=== PATIENT | female | born 1990 | race Caucasian/White ===

== ENCOUNTER 2017-03-19 09:45 | Observation (INO) | payer OTHER ==
[2017-03-19 10:15] VITALS: O2SAT 98
[2017-03-19 11:18] VITALS: BP 119/76; PULSE 83
== END 2017-03-19 11:20 | disposition home or self-care (01) ==
LOC: OB 09:45
PROVIDERS: ADMIT Family Medicine; ATTEND Family Medicine
DX: Z34.03 Encounter for supervision of normal first pregnancy, third trimester (principal)
CPT/HCPCS: 59025; G0378

== ENCOUNTER 2017-04-22 07:58 | Inpatient (IN) | payer OTHER, SELFPAY ==
[2017-04-22] MEDS ORDERED: Phenergan 25 MG INJ IV PRN (17:39)
[2017-04-22] MEDS ORDERED: Zofran 4 MG/2 ML VIAL IV PRN (17:39)
[2017-04-22] MEDS ORDERED: PITOCIN 30 UNITS/ LR 500 ML 500 ML IV SCH (18:00)
[2017-04-22 18:47] LABS: Mean Cell Volume 90.2 fl (78-100); Mean Corpuscular Hemoglobin 31.1 pg (26-32); Mean Platelet Volume 10.5 fl (6-9.5); Platelet Count 216 K/mm3 (150-450); Red Blood Count 4.28 M/mm3 (4.1-5.4); Red Cell Distribution Width 13.3 % (11.5-14.0); White Blood Count 10.3 K/mm3 (4.0-10.5)
[2017-04-22 19:48] LABS: BAND 5 % (0.0-2.0); Platelet Estimate NORMAL (NORMAL); Total Cells Counted 100
[2017-04-23] MEDS ORDERED: XYLOCAINE 1% HCL 20 ML MDV IJ PRN (06:00)
[2017-04-23] MEDS: Lactated Ringers 1,000 ML IV SCH ×3 (08:22→21:00)
[2017-04-23] MEDS: SYNTHROID 25 MCG PO SCH (10:13)
[2017-04-23] MEDS ORDERED: Lactated Ringers 1,000 ML IV ONE (11:28)
[2017-04-23] MEDS ORDERED: Ephedrine Sulfate 50 MG/ML IV PRN (11:28)
[2017-04-23] MEDS ORDERED: OB EPIDURAL NAROPIN/SUFENTANIL IN NACL EPIDURAL PRN (11:28)
[2017-04-23] MEDS: Nubain 10 MG/ML IV PRN ×2 (13:31→16:40)
[2017-04-23] MEDS ORDERED: OMNIPEN 2 GM / NACL 100ML 100 ML IV ONE (21:53)
[2017-04-23] MEDS ORDERED: MOTRIN 400 MG ONE (23:08)
[2017-04-23] MEDS ORDERED: Dermoplast Spray ONE (23:08)
[2017-04-23] MEDS ORDERED: LANSINOH 40 GM ONE (23:08)
[2017-04-23] MEDS ORDERED: TUCKS TP ONE (23:08)
[2017-04-23] MEDS ORDERED: CORTISONE 1% CREAM TP PRN (23:11)
[2017-04-23] MEDS ORDERED: Anucort-HC SUPPOSITORY PR PRN (23:11)
[2017-04-23] MEDS ORDERED: Mylicon 80MG PO PRN (23:11)
[2017-04-23] MEDS ORDERED: LANSINOH 40 GM TOP PRN (23:11)
[2017-04-23] MEDS ORDERED: NORCO 5/325 MG PO PRN (23:11)
[2017-04-23] MEDS ORDERED: Dulcolax 10 MG SUPP PR PRN (23:11)
[2017-04-23] MEDS: MOTRIN 400 MG PO PRN (23:14)
[2017-04-23] MEDS: Dermoplast Spray TP PRN (23:19)
[2017-04-23] MEDS ORDERED: TUCKS TP PRN (23:20)
[2017-04-24] MEDS ORDERED: OMNIPEN 1GM / NaCl 100ML 100 ML ONE (01:00)
[2017-04-24] MEDS ORDERED: OMNIPEN 1GM / NaCl 100ML 100 ML IV SCH (01:53)
[2017-04-24] MEDS: MOTRIN 400 MG PO PRN ×2 (05:30→18:43)
[2017-04-24] MEDS: OMNIPEN 1GM / NaCl 100ML 100 ML IV SCH ×4 (05:44→19:05)
[2017-04-24 06:30] LABS: BASOPHIL % 0.1 % (0.0-0.4); Eosinophil % 0.2 % (0.00-5.0); Granulocytes % 81.2 % (36.0-66.0); Lymphocytes % 11.5 % (24.0-44.0); Mean Cell Volume 92.4 fl (78-100); Mean Platelet Volume 10.7 fl (6-9.5); Platelet Count 196 K/mm3 (150-450); Red Blood Count 3.44 M/mm3 (4.1-5.4); Red Cell Distribution Width 13.4 % (11.5-14.0); White Blood Count 13.5 K/mm3 (4.0-10.5)
[2017-04-24 06:31] LABS: Mean Corpuscular Hemoglobin 31.6 pg (26-32)
[2017-04-24] MEDS: FERREX 150 PO SCH (10:09)
[2017-04-24] MEDS: SYNTHROID 25 MCG PO SCH (10:10)
[2017-04-24] MEDS: Colace 100 MG PO SCH ×2 (10:10→21:03)
[2017-04-24] MEDS: TYLENOL EXTRA STRENGTH 500 MG PO PRN ×2 (10:12→21:02)
[2017-04-25] MEDS: MOTRIN 400 MG PO PRN ×3 (00:17→16:34)
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
[2017-04-25] MEDS: Colace 100 MG PO SCH ×2 (10:21→22:14)
[2017-04-25] MEDS: FERREX 150 PO SCH (10:21)
[2017-04-25] MEDS: SYNTHROID 25 MCG PO SCH (10:21)
[2017-04-25] MEDS: Dermoplast Spray TP PRN (22:14)
[2017-04-25 23:25] VITALS: BP 133/84; PULSE 90
== END 2017-04-25 23:15 | disposition home or self-care (01) | DRG 775 ==
LOC: OB 07:58 → UNDOADMOB 17:23 → OB 17:23 → OBSVTOIN 04-23 07:58
PROVIDERS: ADMIT Family Medicine; ATTEND Family Medicine
PROC: 10E0XZZ Delivery of Products of Conception, External Approach (ICD-10-PCS; principal; 2017-04-23)
PROC: 0KQM0ZZ Repair Perineum Muscle, Open Approach (ICD-10-PCS; 2017-04-23)
DX: O70.1 Second degree perineal laceration during delivery (principal); Z37.0 Single live birth; Z3A.40 40 weeks gestation of pregnancy
CPT/HCPCS: 01967; 36415; 80307; 85025; G0378; J0290; J2300; J2590; J2795; A9270-GY

== ENCOUNTER 2020-01-01 13:50 | Observation (INO) | payer OTHER ==
[2020-01-01 14:28] VITALS: BP 123/79; PULSE 100
--- NOTE | 2020-01-01 15:04 | XRAY ---
Indication: Evaluate SALEEM. well-being. Limited OB ultrasound performed to evaluate SALEEM. Single viable intrauterine with heart rate 126 BPM. 4 quadrant SALEEM is 19.9 cm, previously 16.4 cm on December 21, 2019. Impression: New borderline polyhydramnios.
== END 2020-01-01 15:15 | disposition home or self-care (01) ==
LOC: OB 13:50
PROVIDERS: ADMIT Family Medicine; ATTEND Family Medicine
DX: Z34.83 Encounter for supervision of other normal pregnancy, third trimester (principal)
CPT/HCPCS: 59025; 76815; G0378

== ENCOUNTER 2020-01-05 10:00 | Observation (INO) | payer OTHER ==
[2020-01-05 10:17] VITALS: BP 130/77; PULSE 114
== END 2020-01-05 11:13 | disposition home or self-care (01) ==
LOC: OB 10:00
PROVIDERS: ADMIT Family Medicine; ATTEND Family Medicine
DX: Z34.83 Encounter for supervision of other normal pregnancy, third trimester (principal)
CPT/HCPCS: 59025; G0378

== ENCOUNTER 2020-01-09 07:04 | Observation (INO) | payer OTHER ==
[2020-01-09] MEDS ORDERED: BRETHINE 1 MG/ML SQ PRN (08:00)
[2020-01-09] MEDS ORDERED: OMNIPEN 2 GM*** 2 G in Sodium Chloride 100ML MINI-BAG PLUS 100 ML IV ONE (08:00)
[2020-01-09] MEDS ORDERED: XYLOCAINE 1% HCL 20 ML MDV IJ PRN (08:00)
[2020-01-09] MEDS ORDERED: PITOCIN 30 UNITS/ LR 500 ML 500 ML IV SCH (08:00)
[2020-01-09 08:09] LABS: Hematocrit 36.8 % (35-47); Hemoglobin 12.8 gm/dl (12.0-16.0); Mean Cell Volume 92.9 fl (78-100); Mean Corpuscular Hemoglobin 32.3 pg (26-32); Mean Corpuscular Hgb Concent. 34.8 g/dl (32-36); Mean Platelet Volume 10.2 fl (7.5-11.0); Platelet Count 184 K/mm3 (150-450); Red Blood Count 3.96 M/mm3 (4.1-5.4); Red Cell Distribution Width 13.5 % (11.5-14.0); White Blood Count 8.7 K/mm3 (4.0-10.5)
[2020-01-09 08:26] LABS: Amphetamine,Urine NEGATIVE (NEGATIVE); Barbiturate,Urine NEGATIVE (NEGATIVE); Benzodiazepine,Urine NEGATIVE (NEGATIVE); Cocaine,Urine NEGATIVE (NEGATIVE); Methadone,Urine NEGATIVE (NEGATIVE); Opiate,Urine NEGATIVE (NEGATIVE); PCP,Urine NEGATIVE (NEGATIVE); THC,Urine NEGATIVE (NEGATIVE)
[2020-01-09] MEDS: Lactated Ringers 1,000 ML IV SCH ×2 (08:32→18:45)
[2020-01-09 08:42] VITALS: O2SAT 97
[2020-01-09 11:09] LABS: BAND 6 % (0.0-2.0); Lymphocytes 12 % (24-44); Monocyte 3 % (0.0-12.0); Neutrophils 79 % (36.0-66.0); Platelet Estimate NORMAL (NORMAL); Polychromasia 1+; Total Cells Counted 100
[2020-01-09] MEDS ORDERED: OMNIPEN 1 GM ONE (13:36)
[2020-01-09] MEDS: OMNIPEN 1 GM*** 1 GM in Sodium Chloride 100ML MINI-BAG PLUS 100 ML IV SCH ×3 (13:41→20:39)
[2020-01-09] MEDS: CYTOTEC PO PRN ×3 (18:45→22:53)
[2020-01-10] MEDS: CYTOTEC PO PRN (00:52)
[2020-01-10] MEDS: OMNIPEN 1 GM*** 1 GM in Sodium Chloride 100ML MINI-BAG PLUS 100 ML IV SCH (00:53)
[2020-01-10 01:51] VITALS: BP 117/82; PULSE 77
== END 2020-01-10 03:08 | disposition home or self-care (01) ==
LOC: OB 07:04
PROVIDERS: ADMIT Family Medicine; ATTEND Family Medicine
DX: O13.3 Gestational [pregnancy-induced] hypertension without significant proteinuria, third trimester (principal); Z3A.39 39 weeks gestation of pregnancy; O99.820 Streptococcus B carrier state complicating pregnancy
CPT/HCPCS: 36415; 80307; 85025; 87340; G0378; J0290; J2590

== ENCOUNTER 2020-01-14 14:40 | Inpatient (IN) | payer OTHER ==
[2020-01-14] MEDS ORDERED: BRETHINE 1 MG/ML SQ PRN (16:25)
[2020-01-14] MEDS ORDERED: PITOCIN 30 UNITS/ LR 500 ML 500 ML IV SCH (17:00)
[2020-01-14] MEDS ORDERED: Cervidil 10 MG VAG SCH (18:00)
[2020-01-14] MEDS ORDERED: Zofran 4 MG/2 ML VIAL IV PRN (18:00)
[2020-01-14 20:23] LABS: Hematocrit 36.6 % (35-47); Hemoglobin 12.7 gm/dl (12.0-16.0); Mean Cell Volume 93.6 fl (78-100); Mean Corpuscular Hemoglobin 32.5 pg (26-32); Mean Corpuscular Hgb Concent. 34.7 g/dl (32-36); Mean Platelet Volume 10.2 fl (7.5-11.0); Platelet Count 171 K/mm3 (150-450); Red Blood Count 3.91 M/mm3 (4.1-5.4); Red Cell Distribution Width 13.3 % (11.5-14.0); White Blood Count 9.5 K/mm3 (4.0-10.5)
[2020-01-14 23:47] LABS: BAND 1 % (0.0-2.0); Eosinophil 2 % (0.00-3.0); Lymphocytes 21 % (24-44); Monocyte 4 % (0.0-12.0); Neutrophils 72 % (36.0-66.0); Total Cells Counted 100
[2020-01-14 23:48] LABS: ANISOCYTOSIS 1+; Platelet Estimate NORMAL (NORMAL)
[2020-01-15] MEDS ORDERED: Lactated Ringers 1,000 ML IV ONE (00:02)
[2020-01-15] MEDS ORDERED: Nubain 10 MG/ML IV PRN (00:02)
[2020-01-15] MEDS ORDERED: Ephedrine Sulfate 50 MG/ML IV PRN (00:02)
[2020-01-15] MEDS ORDERED: Zofran 4 MG/2 ML VIAL IV PRN (00:02)
[2020-01-15] MEDS ORDERED: Phenergan 25 MG INJ IV PRN (00:02)
[2020-01-15] MEDS ORDERED: OB EPIDURAL NAROPIN/SUFENTANIL IN NACL EPIDURAL PRN (00:02)
[2020-01-15] MEDS ORDERED: XYLOCAINE 1% HCL 20 ML MDV IJ PRN ×2 (00:02→06:00)
[2020-01-15] MEDS ORDERED: STADOL 2 MG IV PRN (00:02)
[2020-01-15] MEDS ORDERED: PITOCIN 30 UNITS/ LR 500 ML 500 ML IV SCH ×2 (00:30→06:00)
[2020-01-15] MEDS ORDERED: OMNIPEN 2 GM*** 2 G in Sodium Chloride 100ML MINI-BAG PLUS 100 ML IV ONE (06:00)
[2020-01-15] MEDS: Lactated Ringers 1,000 ML IV SCH ×5 (08:32→21:55)
[2020-01-15] MEDS ORDERED: OMNIPEN 1 GM ONE (13:41)
[2020-01-15] MEDS ORDERED: OMNIPEN 1 GM IV SCH (13:45)
[2020-01-15] MEDS: OMNIPEN 1GM / NaCl 100ML 100 ML IV SCH ×3 (14:30→22:00)
[2020-01-15] MEDS ORDERED: Mylicon 80MG PO PRN (22:37)
[2020-01-15] MEDS ORDERED: Ambien 10 MG PO PRN (22:37)
[2020-01-15] MEDS ORDERED: LANSINOH 40 GM TOP PRN (22:37)
[2020-01-15] MEDS ORDERED: TUCKS TP PRN (22:37)
[2020-01-15] MEDS ORDERED: Restoril 15 MG PO PRN (22:37)
[2020-01-15] MEDS ORDERED: Dermoplast Spray TP PRN (22:37)
[2020-01-15] MEDS: MOTRIN 400 MG PO PRN (23:18)
[2020-01-16] MEDS: TYLENOL EXTRA STRENGTH 500 MG PO PRN ×3 (04:09→16:16)
[2020-01-16 04:49] LABS: Absolute Neutrophil Ct (ANC) 8.68 (1.4-6.9); BASOPHIL % 0.1 % (0.0-0.4); Basophil (Absolute #) 0.01 (0-0.4); Eosinophil % 0.4 % (0.00-5.0); Eosinophil (Absolute #) 0.04 (0-0.5); Hematocrit 28.5 % (35-47); Hemoglobin 9.7 gm/dl (12.0-16.0); Lymphocyte (Absolute #) 1.49 (1.0-4.6); Lymphocytes % 13.7 % (24.0-44.0); Mean Cell Volume 95.6 fl (78-100); Mean Corpuscular Hemoglobin 32.6 pg (26-32); Mean Platelet Volume 10.1 fl (7.5-11.0); Monocyte (Absolute #) 0.63 (0.0-1.3); Monocytes % 5.8 % (0.0-12.0); Platelet Count 171 K/mm3 (150-450); Red Blood Count 2.98 M/mm3 (4.1-5.4); Red Cell Distribution Width 13.3 % (11.5-14.0); White Blood Count 10.9 K/mm3 (4.0-10.5)
[2020-01-16] MEDS: MOTRIN 400 MG PO PRN ×3 (07:42→20:51)
[2020-01-16] MEDS ORDERED: Adacel Vial IM ONE (09:00)
[2020-01-16] MEDS ORDERED: FERREX 150 PO SCH (10:00)
[2020-01-16] MEDS: Colace 100 MG PO SCH ×2 (10:51→20:51)
[2020-01-16 22:41] VITALS: BP 121/63; PULSE 75; O2SAT 100
== END 2020-01-16 22:00 | disposition home or self-care (01) | DRG 807 ==
LOC: OB 18:58 → OBSVTOIN 01-15 12:13
PROVIDERS: ADMIT Family Medicine; ATTEND Family Medicine
PROC: 10E0XZZ Delivery of Products of Conception, External Approach (ICD-10-PCS; principal; 2020-01-15)
PROC: 0KQM0ZZ Repair Perineum Muscle, Open Approach (ICD-10-PCS; 2020-01-15)
DX: O70.1 Second degree perineal laceration during delivery (principal); Z37.0 Single live birth; Z3A.39 39 weeks gestation of pregnancy
CPT/HCPCS: 36415; 85025; 87086; 87340; 90471; 90715; G0378; J0290; J2590; J2795; A9270-GY

== ENCOUNTER 2020-04-08 06:33 | Day surgery (SDC) | payer OTHER ==
[2020-04-08] MEDS ORDERED: Decadron 4 MG INJ IV ONE (06:34)
[2020-04-08] MEDS ORDERED: Xylocaine-Mpf 2% 5 Ml Vial IJ ONE (06:34)
[2020-04-08] MEDS ORDERED: DIPRIVAN 200 MG/20 ML IV ONE (06:34)
[2020-04-08] MEDS ORDERED: SUBLIMAZE 100 MCG/2 ML IV ONE (06:34)
[2020-04-08] MEDS ORDERED: Zofran 4 MG/2 ML VIAL IV ONE (06:34)
[2020-04-08] MEDS ORDERED: Transderm Scop 1.5MG Patch TOP PRN (06:50)
[2020-04-08] MEDS ORDERED: Lactated Ringers 1,000 ML IV SCH (07:00)
[2020-04-08] MEDS ORDERED: KEFZOL 1 GM/50 ML PREMIX** 1 GM/50 ML IVPB IV SCH (07:00)
[2020-04-08] MEDS ORDERED: Lactated Ringers 1,000 ML IV ONE (09:58)
[2020-04-08 10:27] VITALS: BP 103/69; PULSE 55; O2SAT 100
--- NOTE | 2020-04-09 12:07 | OP ---
SURGERY DATE/TIME: 04/08/2020 0839 PREOPERATIVE DIAGNOSES: 1) Abnormal uterine bleeding. 2) Questionable retained tissue. POSTOPERATIVE DIAGNOSES: 1) Abnormal uterine bleeding. 2) Questionable retained tissue. PROCEDURE: Hysteroscopy, D&C with suction. SURGEON: Jatinder Parsons D.O. CORPORATE SECURITY OFFICER: Amelia Wetzel, surgical scrub technologist. ANESTHESIA: General. ESTIMATED BLOOD LOSS: Minimal. COMPLICATIONS: None. INDICATIONS: The risks, benefits, indications and alternatives of the procedure were reviewed with the patient prior to the procedure. The patient understood the risk of infection, bleeding, bowel injury, bladder injury, ureteral injury, uterine perforation associated with the surgery and desires to have this surgery as a possible need to alleviate her current medical condition. DESCRIPTION OF PROCEDURE AND FINDINGS: At this point the patient is taken to the operating room, given general sedation, placed in dorsal lithotomy position. Prepped and draped in the usual sterile fashion. A weighted speculum is then placed in the patient's vagina and the anterior lip of the cervix was grasped with a single tooth tenaculum. Endocervical dilators were advanced to the endocervical canal as a means to dilate the cervix and at this point a 5 mm hysteroscope was then placed into the fundus of the uterus where visualization revealed normal anatomy. However, there appeared to be on the posterior surface of the cervix approximately 4 cm proximal to the endocervical canal a lesion located on the posterior surface about 2 x 3 cm in dimension which appeared to be retained tissue. From this point the hysteroscope was then removed and a suction vac was then placed into the fundus of the uterus and suction machine was turned on retrieving a moderate amount of tissue. Subsequent to this a curette was then placed through the fundus of the uterus and curettage was performed in all quadrants of the uterus retrieving a mild to moderate amount of tissue where hemostasis was obtained. At the completion of the procedure all instruments were then removed from the patient's vaginal region. There was minimal bleeding that was noted coming from cervix. Again, all instruments removed from patient's vaginal region. The patient was then taken out of dorsal lithotomy position, was taken out of anesthesia and was then taken to the recovery room in stable condition. All instruments and laps were accounted for x2.
== END 2020-04-08 10:30 | disposition home or self-care (01) ==
LOC: SDC 06:33
PROVIDERS: ATTEND Obstetrics & Gynecology
DX: O72.2 Delayed and secondary postpartum hemorrhage (principal)
CPT/HCPCS: 58558; 84703; 88305; J0690; J1100; J2405; J2704; J3010; A9270-GY

== ENCOUNTER 2025-01-07 20:06 | Emergency (ER) | payer OTHER ==
[2025-01-07] MEDS ORDERED: Zofran 4 MG/2 ML VIAL ONE (20:11)
[2025-01-07] MEDS ORDERED: Hydromorphone 1 mg/ml Injection ONE ×2 (20:11→20:32)
[2025-01-07] MEDS ORDERED: Sodium Chloride 0.9% 1000 ML 1,000 ML ONE (20:11)
[2025-01-07] MEDS ORDERED: CEFAZOLIN 2 GM/100 ML NaCl 2 GM/100 ML IVPB IV ONE (20:12)
[2025-01-07] MEDS ORDERED: CEFAZOLIN 1 GM/100 ML NACL IVPB 1 GM/100 ML IVPB IV ONE (20:12)
[2025-01-07] MEDS: Zofran 4 MG/2 ML VIAL IV ONE (20:26)
[2025-01-07] MEDS: Sodium Chloride 0.9% 1000 ML 1,000 ML IV STA (20:26)
[2025-01-07] MEDS: CEFAZOLIN 2 GM/100 ML NaCl 2 GM/100 ML IVPB IV STA (20:26)
[2025-01-07] MEDS: Hydromorphone 1 mg/ml Injection IV ONE ×3 (20:33→21:43)
[2025-01-07 20:51] VITALS: TEMP 98.7
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
[2025-01-07] MEDS: CEFAZOLIN 1 GM/100 ML NACL IVPB 1 GM/100 ML IVPB IV STA (20:59)
[2025-01-07 21:32] LABS: Hematocrit 38.9 % (34.1-44.9); Hemoglobin 13.3 g/dL (11.2-15.7); Mean Corpuscular Hemoglobin 30.8 pg (25.6-32.2); Mean Corpuscular Hgb Concent. 34.2 g/dL (32.2-35.5); Mean Platelet Volume 10.7 fL (9.4-12.3); Platelet Count 317 x10^3/uL (182-369); Red Blood Count 4.32 x10^6/uL (3.93-5.22); Red Cell Distribution Width 12.5 % (11.7-14.4); White Blood Count 10.3 x10^3/uL (3.98-10.04)
[2025-01-07 21:37] LABS: ALBUMIN 4.8 g/dL (3.5-5.0); ANION GAP 20.6 MEQ/L (5-15); BILIRUBIN,TOTAL 0.4 mg/dL (0.2-1.3); Calcium 8.9 mg/dL (8.4-10.2); Creatinine 1 0.82 mg/dL (0.52-1.04); EST GLOMERULAR FILTRATION RATE 97.4 ML/MIN; HCG SERUM TEST NEGATIVE (NEGATIVE); Potassium 3.1 mmol/L (3.5-5.1); Total Protein 7.3 g/dL (6.3-8.2)
[2025-01-07 22:14] VITALS: BP 133/93; PULSE 104; RESP 16
[2025-01-07 22:18] LABS: Lymphocytes 39 % (19.3-51.7); Monocyte 3 % (4.7-12.5); Neutrophils 58 % (34.0-71.1); Total Cells Counted 100
[2025-01-07 22:19] LABS: Platelet Estimate NORMAL (NORMAL)
[2025-01-07 22:29] LABS: Appearance Clear (Clear); Bacteria None Seen /HPF (None Seen); Bilirubin Negative (Negative); Blood Negative (Negative); Epithelial Cells None Seen /HPF (None Seen); Glucose, Urine Negative (Negative); Hyaline Casts NONE SEEN /LPF (0-2); Ketones Negative (Negative); Leukocyte Esterase Trace (Negative); Nitrite Negative (Negative); Ph 6.5 (4.6-8.0); Protein,Urine Dip Negative (Negative); RBC 0-2 /HPF (0-5); Specific Gravity 1.015 (1.005-1.030); Urobilinogen 0.2 mg/dL (0.2); WBC 0-2 /HPF (0-5)
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
[2025-01-11 08:14] VITALS: O2SAT 100
== END 2025-01-07 22:39 | disposition short-term general hospital (02) ==
LOC: ED 20:06
DX: S92.251B Displaced fracture of navicular [scaphoid] of right foot, initial encounter for open fracture (principal); S92.311B Displaced fracture of first metatarsal bone, right foot, initial encounter for open fracture; S92.321B Displaced fracture of second metatarsal bone, right foot, initial encounter for open fracture; S92.331B Displaced fracture of third metatarsal bone, right foot, initial encounter for open fracture; S92.341B Displaced fracture of fourth metatarsal bone, right foot, initial encounter for open fracture; S80.811A Abrasion, right lower leg, initial encounter; S97.81XA Crushing injury of right foot, initial encounter; V86.95XA Unspecified occupant of 3- or 4- wheeled all-terrain vehicle (ATV) injured in nontraffic accident, initial encounter; Z79.899 Other long term (current) drug therapy
CPT/HCPCS: 36415; 73590; 73610; 73630; 80053; 81001; 84703; 85025; 96365; 96374; 96375; 96376; 99285; 99291; J0690; J1171; J2405